=== PATIENT | female | born 1970 | race Caucasian/White ===

== ENCOUNTER → 2016-05-25 | Outpatient (CLI) | payer MEDICAID ==
[2016-05-25 16:57] LABS: ABSOLUTE EOSINOPHILS # (AUTO) 0.1 10^3/uL (0.0-0.6); ABSOLUTE LYMPHOCYTES (AUTO) 2.2 10^3/uL (0.5-4.7); ABSOLUTE MONOCYTES (AUTO) 0.6 10^3/uL (0.1-1.4); BASOPHILS % (AUTO) 0.2 % (0-2); EOSINOPHILS % (AUTO) 1.5 % (0-6); HEMATOCRIT 41.9 % (36.0-47.0); HEMOGLOBIN 13.7 g/dL (12.0-15.5); HGB HCT DIFFERENCE -0.8; LYMPHOCYTES % (AUTO) 27.8 % (13-45); MEAN CORPUSCULAR HEMOGLOBIN 27.1 pg (27.0-33.4); MEAN CORPUSCULAR HGB CONC 32.7 g/dL (32.0-36.0); MEAN CORPUSCULAR VOLUME 83 fl (80-97); MONOCYTES % (AUTO) 7.9 % (3-13); RED BLOOD COUNT 5.04 10^6/uL (3.72-5.28); RED CELL DISTRIBUTION WIDTH 15.8 % (11.5-14.0); SEGMENTED NEUTROPHILS % (AUTO) 62.6 % (42-78); WHITE BLOOD COUNT 8.1 10^3/uL (4.0-10.5)
[2016-05-25 17:18] LABS: ALANINE AMINOTRANSFERASE 23 U/L (9-52); ALBUMIN 3.6 g/dL (3.5-5.0); ALKALINE PHOSPHATASE 83 U/L (38-126); ANION GAP 11 (5-19); ASPARTATE AMINO TRANSFERASE 22 U/L (14-36); BILIRUBIN,TOTAL 0.3 mg/dL (0.2-1.3); BLOOD UREA NITROGEN 14 mg/dL (7-20); CALCIUM 9.7 mg/dL (8.4-10.2); CARBON DIOXIDE 26 mmol/L (22-30); CHLORIDE 108 mmol/L (98-107); CREATINE KINASE 94 U/L (30-135); CREATININE RESULT 0.73 mg/dL (0.52-1.25); GLUCOSE 81 mg/dL (75-110); POTASSIUM 4.9 mmol/L (3.6-5.0); SODIUM 144.7 mmol/L (137-145); TOTAL PROTEIN 7.5 g/dL (6.3-8.2)
[2016-05-25 17:28] LABS: CREATINE KINASE MB 0.27 ng/mL (<4.55)
[2016-05-25 17:33] LABS: TROPONIN I < 0.012 ng/mL
== END ==
LOC: LAB 15:43
PROVIDERS: ATTEND Nurse Practitioner Acute Care
DX: R07.89 Other chest pain (principal); R22.43 Localized swelling, mass and lump, lower limb, bilateral
CPT/HCPCS: 36415; 71020; 80053; 82550; 82553; 83880; 84484; 85025

== ENCOUNTER → 2016-06-09 | Outpatient (CLI) | payer MEDICAID ==
--- NOTE | 2016-06-10 10:51 | XCELERA REPORT ---
[address] [address] Transthoracic Echocardiogram Report Name: KRISHAN LAMBERT Age: 46 yrs Gender: Female : 1970 Patient Status: Outpatient Patient Location: Study Date: 06/09/2016 03:08 PM Height: 60 in Weight: 236 lb BSA: 2.0 m2 Procedure: A two-dimensional transthoracic echocardiogram with color flow and Doppler was performed. The study was technically difficult with many images being suboptimal in quality. The study was technically limited with all images being suboptimal in quality. Reason For Study: EDEMA R60.1 History: Edema. Ordering Physician: Sterling Khan Performed By: Jimmie Pedro Interpretation Summary The left ventricle is normal in size. There is normal left ventricular wall thickness. Left ventricular systolic function is normal. LV EF is > than 55% Doppler measurements suggest impaired left ventricular relaxation, which is associated with grade I/IV or mild diastolic dysfunction The left ventricular wall motion is normal. There is no thrombus. The left atrial size is normal. There is no evidence of mitral valve prolapse. There is no mitral valve stenosis. There is a mild amount of mitral regurgitation There is no aortic valve stenosis There is no LVOT obstruction. No aortic regurgitation is present. There is no tricuspid stenosis. There is a trace amount of tricuspid regurgitation RVSP is 28 to 33 mm of Hg , with RA mean of 5 to10.Hence no significant pulmonary hypertension. There is no pericardial effusion. MMode/2D Measurements \T\ Calculations RVDd: 2.1 cm LVIDd: 4.2 cm FS: 30.1 % Ao root diam: 2.6 cm IVSd: 1.0 cm LVIDs: 3.0 cm EDV(Teich): 80.2 ml LVPWd: 0.93 cm ESV(Teich): 33.9 ml Ao root area: 5.2 cm2 EF(Teich): 57.7 % LA dimension: 3.0 cm Doppler Measurements \T\ Calculations MV E max sami: MV P1/2t max sami: Ao V2 max: LV V1 max P.2 cm/sec 66.2 cm/sec 99.5 cm/sec 2.1 mmHg MV A max sami: MV P1/2t: 60.0 msec Ao max PG: LV V1 max: 77.5 cm/sec 4.0 mmHg 72.7 cm/sec MV E/A: 0.85 MVA(P1/2t): 3.7 cm2 MV dec slope: 323.6 cm/sec2 MV dec time: 0.21 sec PA V2 max: TR max sami: RAP systole: 76.0 cm/sec 243.0 cm/sec 10.0 mmHg PA max PG: TR max P.6 mmHg 2.3 mmHg RVSP(TR): 33.6 mmHg Left Ventricle The left ventricle is normal in size. There is normal left ventricular wall thickness. Left ventricular systolic function is normal. LV EF is > than 55%. Doppler measurements suggest impaired left ventricular relaxation, which is associated with grade I/IV or mild diastolic dysfunction. The left ventricular wall motion is normal. There is no thrombus. Right Ventricle The right ventricle is grossly normal size. Atria The right atrium is normal. The left atrial size is normal. Mitral Valve There is no evidence of mitral valve prolapse. There is no vegetation seen on the mitral valve. There is no mitral valve stenosis. There is a mild amount of mitral regurgitation. Aortic Valve There is no aortic valvular vegetation. There is no aortic valve stenosis. There is no LVOT obstruction. No aortic regurgitation is present. Tricuspid Valve There is no tricuspid stenosis. There is a trace amount of tricuspid regurgitation. RVSP is 28 to 33 mm of Hg , with RA mean of 5 to10.Hence no significant pulmonary hypertension. Pulmonic Valve There is no pulmonic valvular stenosis. There is no pulmonic valvular regurgitation. Great Vessels The aortic root is normal size. Effusions There is no pericardial effusion. : Sterling Khan > Janae Damon
== END ==
LOC: SP 14:52
PROVIDERS: ATTEND Family Medicine
DX: R60.1 Generalized edema (principal)
CPT/HCPCS: 93306

== ENCOUNTER 2017-11-22 16:16 | Emergency (ER) | payer BC ==
[2017-11-22] MEDS ORDERED: ASPIRIN 81 MG TABLET, CHEWABLE PO ONE (17:01)
--- NOTE | 2017-11-22 17:01 | ER Document Report ---
ED Medical Screen (RME) - General Chief Complaint: Palpitations Stated Complaint: CHEST PAIN,HEADACHE Time Seen by Provider: 11/22/17 16:51 Notes: RAPID MEDICAL EVALUATION DISCLOSURE I have seen this patient as part of a Rapid Medical Evaluation and, if applicable, placed any initially appropriate orders. The patient will be seen and fully evaluated, including a full history and physical exam, by a provider ( in Main ED or Fast Track) when a room becomes available. 47-year-old female here with complaints of chest pain shortness of breath lightheadedness diaphoresis nausea that started about 1 hour ago. The Holter monitor she is currently wearing alerted her care management coordinator office (Dr Voss) and they called her telling her to come immediately to the emergency department. She has been having episodes of these symptoms ongoing for the past few months and they have been trying to figure out why she is having these episodes. EXAM CTAB RRR (not tachycardic during my exam, despite sinus tachycardia on EKG) TRAVEL OUTSIDE OF THE [place] IN LAST 30 DAYS: No - Related Data Allergies/Adverse Reactions: No Known Allergies Allergy (Verified 11/22/17 16:50) Past Medical History - Social History Chew tobacco use (# tins/day): No Frequency of alcohol use: None Drug Abuse: None - Past Medical History Cardiac Medical History: Reports: Hx Coronary Artery Disease Denies: Hx Heart Attack, Hx Hypertension Pulmonary Medical History: Denies: Hx Asthma, Hx Bronchitis, Hx COPD, Hx Pneumonia Neurological Medical History: Reports: Hx Migraine. Denies: Hx Cerebrovascular Accident, Hx Seizures Renal/ Medical History: Denies: Hx Peritoneal Dialysis Musculoskeltal Medical History: Denies Hx Arthritis, Reports Hx Fibromyalgia - Immunizations Hx Diphtheria, Pertussis, Tetanus Vaccination: Yes Physical Exam - Vital signs Vitals: Temp Pulse Resp BP Pulse Ox 98.6 F 90 18 119/80 98 11/22/17 16:33 11/22/17 16:33 11/22/17 16:33 11/22/17 16:33 11/22/17 16:33 Course - Vital Signs Vital signs: Temp Pulse Resp BP Pulse Ox 98.6 F 90 18 119/80 98 11/22/17 16:33 11/22/17 16:33 11/22/17 16:33 11/22/17 16:33 11/22/17 16:33 Doctor's Discharge - Discharge Referrals: ALONZO RIGGINS DO [Primary Care Provider] - Follow up as needed
[2017-11-22 17:27] LABS: ABSOLUTE EOSINOPHILS # (AUTO) 0.1 10^3/uL (0.0-0.6); ABSOLUTE LYMPHOCYTES (AUTO) 2.2 10^3/uL (0.5-4.7); ABSOLUTE MONOCYTES (AUTO) 0.6 10^3/uL (0.1-1.4); BASOPHILS % (AUTO) 0.2 % (0-2); HEMOGLOBIN 14.3 g/dL (12.0-15.5); LYMPHOCYTES % (AUTO) 31.7 % (13-45); MEAN CORPUSCULAR HGB CONC 33.3 g/dL (32.0-36.0); MEAN CORPUSCULAR VOLUME 96 fl (80-97); MONOCYTES % (AUTO) 8.7 % (3-13); PLATELET COUNT 264 10^3/uL (150-450); RED BLOOD COUNT 4.49 10^6/uL (3.72-5.28); RED CELL DISTRIBUTION WIDTH 16.6 % (11.5-14.0); SEGMENTED NEUTROPHILS % (AUTO) 58.4 % (42-78); TOTAL CELLS COUNTED % (AUTO) 100 %; WHITE BLOOD COUNT 6.8 10^3/uL (4.0-10.5)
[2017-11-22 17:44] LABS: ALANINE AMINOTRANSFERASE 25 U/L (9-52); ALBUMIN 4.2 g/dL (3.5-5.0); ALKALINE PHOSPHATASE 65 U/L (38-126); ANION GAP 13 (5-19); ASPARTATE AMINO TRANSFERASE 21 U/L (14-36); BILIRUBIN,DIRECT 0.3 mg/dL (0.0-0.4); BILIRUBIN,TOTAL 0.3 mg/dL (0.2-1.3); BLOOD UREA NITROGEN 10 mg/dL (7-20); CALCIUM 9.5 mg/dL (8.4-10.2); CARBON DIOXIDE 24 mmol/L (22-30); CHLORIDE 111 mmol/L (98-107); GLUCOSE 83 mg/dL (75-110); PHOSPHORUS 3.9 mg/dL (2.5-4.5); POTASSIUM 4.6 mmol/L (3.6-5.0); SODIUM 147.7 mmol/L (137-145); TOTAL PROTEIN 7.4 g/dL (6.3-8.2)
--- NOTE | 2017-11-22 17:46 | RADIOLOGY REPORT (SQ) ---
EXAM DESCRIPTION: CHEST 2 VIEWS COMPLETED DATE/TIME: 11/22/2017 5:39 pm REASON FOR STUDY: CP SOB COMPARISON: 05/25/2016 EXAM PARAMETERS: NUMBER OF VIEWS: two views TECHNIQUE: Digital Frontal and Lateral radiographic views of the chest acquired. RADIATION DOSE: NA LIMITATIONS: none FINDINGS: LUNGS AND PLEURA: No opacities, masses or pneumothorax. No pleural effusion. MEDIASTINUM AND HILAR STRUCTURES: No masses or contour abnormalities. HEART AND VASCULAR STRUCTURES: Heart normal size. No evidence for failure. BONES: No acute findings. HARDWARE: None in the chest. OTHER: No other significant finding. IMPRESSION: NO ACUTE RADIOGRAPHIC FINDING IN THE CHEST. TECHNICAL DOCUMENTATION: JOB ID: [id number] [employer]- All Rights Reserved Reading location - IP/workstation name: [email or web address]
[2017-11-22] MEDS ORDERED: METOPROLOL TARTRATE 25 MG TABLET PO ONE (19:13)
--- NOTE | 2017-11-22 19:18 | ER Document Report ---
ED General - General Chief Complaint: Palpitations Stated Complaint: CHEST PAIN,HEADACHE Time Seen by Provider: 11/22/17 16:51 Notes: Patient is a 47 year old female with a past medical history of frequent palpitations who presents after having a 15-20 minute episode in which she felt her heart racing very fast when she became diaphoretic and lightheaded. She states that the Holter monitor company contacted her and instructed her to go to the emergency department as she was having severe tachycardia. The patient notes that she has been having similar episodes for over 1 year but that this is the first time she has ever had an event while on a monitor. She states that her symptoms did spontaneously resolve and she now denies any acute complaints. She denies any chest pain or shortness of breath during or after the event. Tachycardia did spontaneously resolve. She does admit to not taking her metoprolol either this morning or last night. She has not yet spoken to her key person regarding today's concerns. No known history of coronary artery disease. TRAVEL OUTSIDE OF THE [place] IN LAST 30 DAYS: No - Related Data Allergies/Adverse Reactions: No Known Allergies Allergy (Verified 11/22/17 16:50) Past Medical History - General Information source: Patient - Social History Smoking Status: Current Every Day Smoker Chew tobacco use (# tins/day): No Frequency of alcohol use: None Drug Abuse: None Lives with: Family Family History: Reviewed & Not Pertinent Patient has suicidal ideation: No Patient has homicidal ideation: No - Past Medical History Cardiac Medical History: Reports: Hx Coronary Artery Disease Denies: Hx Heart Attack, Hx Hypertension Pulmonary Medical History: Denies: Hx Asthma, Hx Bronchitis, Hx COPD, Hx Pneumonia Neurological Medical History: Reports: Hx Migraine. Denies: Hx Cerebrovascular Accident, Hx Seizures Renal/ Medical History: Reports: Hx Kidney Stones. Denies: Hx Peritoneal Dialysis Musculoskeltal Medical History: Reports Hx Arthritis, Reports Hx Fibromyalgia - Immunizations Hx Diphtheria, Pertussis, Tetanus Vaccination: Yes Review of Systems - Review of Systems Notes: Constitutional: Negative for fever. Positive for lightheadedness HENT: Negative for sore throat. Eyes: Negative for visual changes. Cardiovascular: Positive for palpitations Respiratory: Negative for shortness of breath. Gastrointestinal: Negative for abdominal pain, vomiting or diarrhea. Genitourinary: Negative for dysuria. Musculoskeletal: Negative for back pain. Skin: Negative for rash. Neurological: Negative for headaches, weakness or numbness. 10 point ROS negative except as marked above and in HPI. Physical Exam - Vital signs Vitals: Temp Pulse Resp BP Pulse Ox 98.6 F 90 18 119/80 98 11/22/17 16:33 11/22/17 16:33 11/22/17 16:33 11/22/17 16:33 11/22/17 16:33 Interpretation: Normal Notes: PHYSICAL EXAMINATION: GENERAL: Well-appearing, well-nourished and in no acute distress. HEAD: Atraumatic, normocephalic. EYES: Pupils equal round and reactive to light, extraocular movements intact, sclera anicteric, conjunctiva are normal. ENT: nares patent, oropharynx clear without exudates. Moist mucous membranes. NECK: Normal range of motion, supple without lymphadenopathy LUNGS: Breath sounds clear to auscultation bilaterally and equal. No wheezes rales or rhonchi. HEART: Regular rate and rhythm without murmurs ABDOMEN: Soft, nontender, normoactive bowel sounds. No guarding, no rebound. No masses appreciated. EXTREMITIES: Normal range of motion, no pitting or edema. No cyanosis. NEUROLOGICAL: No focal neurological deficits. Moves all extremities spontaneously and on command. PSYCH: Normal mood, normal affect. SKIN: Warm, Dry, normal turgor, no rashes or lesions noted. Course - Re-evaluation Re-evalutation: 11/22/17 19:16 Patient presents after having lightheadedness and palpitations which were recorded by her Holter monitor noted to be sinus tachycardia up to 182 bpm. The patient did not take her metoprolol this morning or last evening. She denies any symptoms at the time of my assessment. EKG here unremarkable. Labs unremarkable. Her key person Dr. Voss was reached out to but was not available for contact as he is not currently windows migration technician and is currently out of town. I have therefore contacted Dr. Damon who has encouraged me to tell patient she needs to continue taking her metoprolol and follow-up in the clinic. He has reviewed her strips and is agreeable to this plan. Clinical history and exam are not consistent with an acute RI, acute pulmonary embolus, aortic dissection or spontaneous pneumothorax. Patient denies any ongoing symptoms at the time my assessment is very well in appearance. She has been given a dose of metoprolol here in the emergency department as she has not taken it in over 24 hours. At this time will discharge with return precautions and follow-up recommendations. Verbal discharge instructions given a the bedside and opportunity for questions given. Medication warnings reviewed. Patient is in agreement with this plan and has verbalized understanding of return precautions and the need for primary care follow-up in the next 24-72 hours. - Vital Signs Vital signs: Temp Pulse Resp BP Pulse Ox 98.7 F 83 16 122/78 98 11/22/17 19:42 11/22/17 19:42 11/22/17 19:42 11/22/17 19:42 11/22/17 19:42 - Laboratory Result Diagrams: 11/22/17 17:05 11/22/17 17:05 Laboratory results interpreted by me: 11/22/17 11/22/17 17:05 17:05 RDW 16.6 H Sodium 147.7 H Chloride 111 H - Diagnostic Test Radiology reviewed: Image reviewed, Reports reviewed Radiology results interpreted by me: 11/22/17 19:17 Chest x-ray: No acute infiltrate or pneumothorax - EKG Interpretation by Me Additional EKG results interpreted by me: 11/22/17 19:18 Sinus tachycardia. Rate 110. No ST elevations or depressions. QTC is 433. Discharge - Discharge Clinical Impression: Sinus tachycardia, Palpitations, Near syncope Condition: Good Disposition: HOME, SELF-CARE Additional Instructions: Your event monitor recorded a period of sinus tachycardia that did spontaneously resolve. Please be sure to take her metoprolol as directed as missing this medication may have been what prompted you to have today's event. I have discussed with Dr. Damon who is currently covering for Dr. Voss and he has not recommended any medication changes at this time point but has again emphasized that you need to continue taking the metoprolol as prescribed. Please contact Dr. Voss's office to schedule a close follow-up. Return if you have recurrent palpitations, vomiting, chest pain, pass out, develop shortness of breath, or have any other symptoms that are worrisome to you. Referrals: ALONZO RIGGINS DO [Primary Care Provider] - Follow up as needed LOGAN VOSS MD [ACTIVE STAFF] - Follow up tomorrow
[2017-11-22 19:43] VITALS: BP 122/78
--- NOTE | 2017-11-22 20:25 | EKG REPORT ---
SEVERITY:- BORDERLINE ECG - SINUS TACHYCARDIA BORDERLINE T ABNORMALITIES, ANTERIOR LEADS : Confirmed by: Janae Damon MD 22-Nov-2017 20:24:21
== END 2017-11-22 20:14 | disposition home or self-care (01) ==
LOC: ER 16:16
DX: R00.0 Tachycardia, unspecified (principal); R00.2 Palpitations; R42 Dizziness and giddiness; R61 Generalized hyperhidrosis; F17.200 Nicotine dependence, unspecified, uncomplicated; I25.10 Atherosclerotic heart disease of native coronary artery without angina pectoris
CPT/HCPCS: 36415; 71046; 80053; 83735; 84100; 84443; 84484; 85025; 93005; 93010; 99285

== ENCOUNTER 2018-01-07 11:31 | Emergency (ER) | payer BC ==
--- NOTE | 2018-01-07 12:01 | ER Document Report ---
ED General - General Chief Complaint: Chest Pain Stated Complaint: SYNCOPAL EPISODE Time Seen by Provider: 01/07/18 11:36 TRAVEL OUTSIDE OF THE [place] IN LAST 30 DAYS: No - HPI Notes: Patient is a 47-year-old female with a history of hypertension, migraines, recurrent palpitations, chronic pain who presents to the ED complaining of a syncopal episode. Pt states that she started to get light headed prior to her syncopal episode. Patient states that she would not have called the ambulance, but bystanders called when she had her episode that was brief. Patient states that she regained consciousness quickly and feels back to normal. Patient states that she has had episodes of syncope over the last year that she states has been evaluated by a neurologist. Patient states that she also has some chest wall tenderness mid sternally that has been present intermittently for over a year as well as intermittent abdominal pain that has been there for over a year. Patient states that her pains do not radiate and are not worsened by anything that she is aware of. She has been eating and drinking without any difficulties. She is urinating normally and having normal bowel movements. Her abdominal pain is generalized. She reports surgical history of having to have scar tissue removed, but denies any other surgical history to her abdomen. Denies any drug allergies. Denies any headache, fever, head injury, neck pain , changes in vision/speech/mentation/hearing, URI, sore throat, palpitations, syncope, cough, shortness of breath, wheeze, dyspnea, nausea/vomiting/diarrhea, urinary retention, dysuria, hematuria, loss of control of bowel or bladder, numbness/tingling, saddle anesthesia, muscle paralysis/weakness, or rash. Denies any prolonged immobilization, distance travel, recent surgery/trauma, personal cancer history, hormone use, smoking, or previous DVT/PE. - Related Data Allergies/Adverse Reactions: No Known Allergies Allergy (Verified 11/22/17 16:50) Past Medical History - Social History Smoking Status: Unknown if Ever Smoked Family History: Reviewed & Not Pertinent - Past Medical History Cardiac Medical History: Reports: Hx Coronary Artery Disease Denies: Hx Heart Attack, Hx Hypertension Pulmonary Medical History: Denies: Hx Asthma, Hx Bronchitis, Hx COPD, Hx Pneumonia Neurological Medical History: Reports: Hx Migraine. Denies: Hx Cerebrovascular Accident, Hx Seizures Renal/ Medical History: Reports: Hx Kidney Stones. Denies: Hx Peritoneal Dialysis Musculoskeletal Medical History: Reports Hx Arthritis, Reports Hx Fibromyalgia - Immunizations Hx Diphtheria, Pertussis, Tetanus Vaccination: Yes Review of Systems - Review of Systems -: Yes All other systems reviewed and negative Physical Exam - Vital signs Vitals: Pulse Ox 97 01/07/18 11:49 - Notes Notes: PHYSICAL EXAMINATION: accompanied by female nurse GENERAL: Well-appearing, well-nourished and in no acute distress. A&Ox4. Answers questions appropriately. HEAD: Atraumatic, normocephalic. Non-tender. No norris sign EYES: Pupils equal round and reactive to light, extraocular movements intact, sclera anicteric, conjunctiva are normal. No raccoon eyes/entrapment. No nystagmus. ENT: EAC clear b/l. TM's intact b/l without erythema, fluid, or perforation. Nares patent and without discharge. oropharynx clear without exudates. No tonsilar hypertrophy or erythema. Moist mucous membranes. No sinus tenderness. No hemotympanum/CSF discharge. NECK: Normal range of motion, supple without lymphadenopathy. No rigidity. No midline tenderness. Spurling negative. NEXUS negative. Chest: No flail chest. equal rise/fall. + tenderness, correlates with pain described. LUNGS: Breath sounds clear to auscultation bilaterally and equal. No wheezes rales or rhonchi. HEART: Regular rate and rhythm without murmurs, rubs, gallops. ABDOMEN: Soft, nondistended abdomen. No guarding, no rebound. No masses appreciated. Normal bowel sounds present. No CVA tenderness bilaterally. + generalized mild tenderness. No specific tenderness at McBurney. Valles neg. Musculoskeletal: Ext b/l: FROM to passive/active. Strength 5+/5. No deficits noted. No bony tenderness of extremities. Back: FROM to passive/active. Strength 5+/5. No vertebral point tenderness, stepoffs, or deformities. Extremities: No cyanosis, clubbing, or edema b/l. Peripheral pulses 2+. Capillary refill less than 2 seconds. NEUROLOGICAL: NIH 0. GCS 15. Cranial nerves grossly intact. Normal speech, normal gait. Normal sensory, motor exams. Reflexes 2+ b/l. NEGRO's negative. Pronator drift negative. Heel/currie, finger/nose wnl. PSYCH: flat SKIN: Warm, Dry, normal turgor, no rashes or lesions noted. Course - Re-evaluation Re-evalutation: 01/07/18 14:20 Patient is an afebrile, well-hydrated 47-year-old female who presents to the ED with episode of syncope (chronic intermittent), chronic chest wall pain, chronic generalized mild abd pain. Vitals are acceptable without any significant tachycardia, tachypnea, or hypoxia. PE is otherwise unremarkable aside from the reproducible chest wall tenderness, currently asymptomatic. Abd is now soft and completely non-tender. Patient is nontoxic-appearing and is tolerating p.o. without any difficulties. Pt is currently asymptomatic. Her pains and symptomatology have been ongoing for over a year with the latest symptoms present x5 days. CBC, CMP, EKG/cardiac enzymes, chest x-ray, CT head are all unremarkable for any acute pathology. Patient has a heart score of 2, Wells score of 0, and is PERC negative. Patient does not have any chest pain, dyspnea, or shortness of breath at this time. Patient's presentation and symptomatology creates low suspicion for ACS, PE, pneumothorax, pericarditis, dissection, respiratory compromise, severe dehydration, sepsis, meningitis, acute intracranial pathology, or other systemic emergent condition at this time. Patient is aware that her condition can change from initial presentation and she needs to monitor symptoms closely and seek medical attention for any acute changes. Pt is feeling better and would like to go home. Recommend conservative measures for symptoms. Recheck with your PCM/material expeditor in 2-3 days. Return to the ED with any worsening/concerning symptoms otherwise as reviewed in discharge. Patient is in agreement. - Vital Signs Vital signs: Temp Pulse Resp BP Pulse Ox 97 01/07/18 11:49 - Laboratory Result Diagrams: 01/07/18 12:30 01/07/18 13:15 Laboratory results interpreted by me: 01/07/18 01/07/18 12:30 13:15 RDW 15.7 H Potassium 3.4 L Carbon Dioxide 19 L Discharge - Discharge Clinical Impression: Chest wall pain Syncopal episodes Qualifiers: Syncope type: unspecified Qualified Code(s): R55 - Syncope and collapse Abdominal pain Qualifiers: Abdominal location: generalized Qualified Code(s): R10.84 - Generalized abdominal pain Condition: Stable Disposition: HOME, SELF-CARE Instructions: Chest Wall Pain ([facility]), Abdominal Pain ([facility]), Syncopal Episode ( [facility]) Additional Instructions: Maintain adequate fluid and food intake Take home medications as directed Low sodium/fat diet Exercise regularly Weight control Monitor blood pressure daily and keep a log Monitor symptoms for any acute changes Recheck with your PCM/material expeditor/neurologist in 3-5 days Consider a follow-up with Gastroenterology Return to the ED with any worsening symptoms and/or development of fever, headache, chest pain, palpitations, syncope, shortness of breath, trouble breathing, abdominal pain, n/v/d, blood in stool/urine, loss of control of bowel /bladder, urinary retention, muscle weakness/paralysis, numbness/tingling, or other worsening symptoms that are concerning to you. Forms: Elevated Blood Pressure Referrals: ALONZO RIGGINS DO [Primary Care Provider] - 01/10/18
[2018-01-07 12:30] LABS: APPEARANCE,URINE CLEAR; BILIRUBIN,URINE NEGATIVE (NEGATIVE); COLOR,URINE YELLOW; GLUCOSE, URINE NEGATIVE (NEGATIVE); KETONES,URINE NEGATIVE (NEGATIVE); LEUKOCYTE ESTERASE,URINE NEGATIVE (NEGATIVE); NITRITE,URINE NEGATIVE (NEGATIVE); PROTEIN,URINE NEGATIVE (NEGATIVE); URINE SPECIFIC GRAVITY 1.013; UROBILINOGEN,URINE NEGATIVE mg/dL (<2.0)
--- NOTE | 2018-01-07 12:34 | RADIOLOGY REPORT (SQ) ---
EXAM DESCRIPTION: CT HEAD WITHOUT COMPLETED DATE/TIME: 01/07/2018 12:24 pm REASON FOR STUDY: chest pain COMPARISON: None. TECHNIQUE: Axial images acquired through the brain without intravenous contrast. Images reviewed wi th bone, brain and subdural windows. Additional sagittal and coronal reconstructions were generated. Images stored on PACS. All CT scanners at this facility use dose modulation, iterative reconstruction, and/or weight based d osing when appropriate to reduce radiation dose to as low as reasonably achievable (ALARA). [facility]: Dose Right [facility]: CareDose [facility]: Dose Right [facility]: Teradose 4D [facility]: ProTenders RADIATION DOSE: CT Rad equipment meets quality standard of care and radiation dose reduction techniq ues were employed. CTDIvol: 53.2 mGy. DLP: 937 mGy-cm. mGy. LIMITATIONS: None. FINDINGS: VENTRICLES: Normal size and contour. CEREBRUM: No masses. No hemorrhage. No midline shift. No evidence for acute infarction. Normal gra y/white matter differentiation. No areas of low density in the white matter. CEREBELLUM: No masses. No hemorrhage. No alteration of density. No evidence for acute infarction. EXTRAAXIAL SPACES: No fluid collections. No masses. ORBITS AND GLOBE: No intra- or extraconal masses. Normal contour of globe without masses. CALVARIUM: No fracture. PARANASAL SINUSES: No fluid or mucosal thickening. SOFT TISSUES: No mass or hematoma. OTHER: No other significant finding. IMPRESSION: NORMAL BRAIN CT WITHOUT CONTRAST. EVIDENCE OF ACUTE STROKE: NO. COMMENT: Quality ID # [id number]: Final reports with documentation of one or more dose reduction techniques (e.g., Automated exposure control, adjustment of the mA and/or kV according to patient size, use of iterative reconstruction technique) TECHNICAL DOCUMENTATION: JOB ID: [id number] [employer]- All Rights Reserved Reading location - IP/workstation name: [email or web address]
--- NOTE | 2018-01-07 12:44 | RADIOLOGY REPORT (SQ) ---
EXAM DESCRIPTION: CHEST SINGLE VIEW COMPLETED DATE/TIME: 01/07/2018 12:20 pm REASON FOR STUDY: chest pain COMPARISON: None. EXAM PARAMETERS: NUMBER OF VIEWS: One view. TECHNIQUE: Single frontal radiographic view of the chest acquired. RADIATION DOSE: NA LIMITATIONS: None. FINDINGS: LUNGS AND PLEURA: No opacities, masses or pneumothorax. No pleural effusion. MEDIASTINUM AND HILAR STRUCTURES: No masses. Contour normal. HEART AND VASCULAR STRUCTURES: Heart normal in size. Normal vasculature. BONES: No acute findings. HARDWARE: None in the chest. OTHER: No other significant finding. IMPRESSION: NO ACUTE RADIOGRAPHIC FINDING IN THE CHEST. TECHNICAL DOCUMENTATION: JOB ID: [id number] [employer]- All Rights Reserved Reading location - IP/workstation name: [email or web address]
[2018-01-07 12:48] LABS: URINE AMPHETAMINES SCREEN NEGATIVE; URINE BARBITURATES SCREEN UNCONFIRMED POSITIVE; URINE BENZODIAZEPINES SCREEN NEGATIVE; URINE COCAINE SCREEN NEGATIVE; URINE MARIJUANA (THC) SCREEN NEGATIVE; URINE METHADONE SCREEN NEGATIVE; URINE PHENCYCLIDINE SCREEN NEGATIVE
[2018-01-07 12:48] LABS: ABSOLUTE EOSINOPHILS # (AUTO) 0.1 10^3/uL (0.0-0.6); ABSOLUTE MONOCYTES (AUTO) 0.4 10^3/uL (0.1-1.4); ABSOLUTE NEUT (AUTO) 3.5 10^3/uL (1.7-8.2); BASOPHILS % (AUTO) 0.5 % (0-2); EOSINOPHILS % (AUTO) 1.1 % (0-6); HEMATOCRIT 44.6 % (36.0-47.0); HEMOGLOBIN 15.1 g/dL (12.0-15.5); LYMPHOCYTES % (AUTO) 33.7 % (13-45); MEAN CORPUSCULAR HEMOGLOBIN 32.5 pg (27.0-33.4); MEAN CORPUSCULAR HGB CONC 33.9 g/dL (32.0-36.0); MEAN CORPUSCULAR VOLUME 96 fl (80-97); MONOCYTES % (AUTO) 6.8 % (3-13); PLATELET COUNT 225 10^3/uL (150-450); RED BLOOD COUNT 4.65 10^6/uL (3.72-5.28); RED CELL DISTRIBUTION WIDTH 15.7 % (11.5-14.0); SEGMENTED NEUTROPHILS % (AUTO) 57.9 % (42-78); TOTAL CELLS COUNTED % (AUTO) 100 %
[2018-01-07 13:53] LABS: ALANINE AMINOTRANSFERASE 16 U/L (9-52); ALBUMIN 3.7 g/dL (3.5-5.0); ALKALINE PHOSPHATASE 65 U/L (38-126); ANION GAP 14 (5-19); ASPARTATE AMINO TRANSFERASE 25 U/L (14-36); BILIRUBIN,DIRECT 0.4 mg/dL (0.0-0.4); BILIRUBIN,TOTAL 0.4 mg/dL (0.2-1.3); BLOOD UREA NITROGEN 14 mg/dL (7-20); CALCIUM 9.4 mg/dL (8.4-10.2); CARBON DIOXIDE 19 mmol/L (22-30); CHLORIDE 107 mmol/L (98-107); GLUCOSE 104 mg/dL (75-110); POTASSIUM 3.4 mmol/L (3.6-5.0); SODIUM 140.1 mmol/L (137-145); TOTAL PROTEIN 7.6 g/dL (6.3-8.2)
[2018-01-07 14:31] VITALS: BP 102/73
--- NOTE | 2018-01-07 20:41 | EKG REPORT ---
SEVERITY:- ABNORMAL ECG - SINUS RHYTHM NONSPECIFIC T ABNORMALITIES, ANT-LAT LEADS : Confirmed by: Fede Voss 07-Jan-2018 17:41:23
== END 2018-01-07 14:41 | disposition home or self-care (01) ==
LOC: ER 11:31
DX: R55 Syncope and collapse (principal); R07.89 Other chest pain; R10.84 Generalized abdominal pain; G89.29 Other chronic pain; I25.10 Atherosclerotic heart disease of native coronary artery without angina pectoris
CPT/HCPCS: 36415; 70450; 71045; 80053; 80307; 81001; 84484; 84703; 85025; 87086; 87088; 93005; 93010; 99285

== ENCOUNTER 2018-02-16 09:23 | Day surgery (SDC) | payer BC ==
[2018-02-16] MEDS ORDERED: PROPOFOL INJ 200 MG/20 ML VIAL IV ONE (11:45)
[2018-02-16] MEDS ORDERED: PROMETHAZINE HCL INJ 25 MG/1 ML VIAL IV PRN (12:50)
[2018-02-16] MEDS ORDERED: ONDANSETRON HCL INJ/PF 4 MG/2 ML SDV IV PRN (12:50)
[2018-02-16] MEDS ORDERED: DIPHENHYDRAMINE HCL 50 MG/ML VIAL IV PRN (12:50)
--- NOTE | 2018-02-16 13:11 | Operative Report ---
Operative Report DATE OF SURGERY: 02/16/18 Operative Report: The risks, benefits and alternatives of the procedure including the risks of bleeding, perforation requiring surgery are explained to the patient in detail and informed consent is obtained. The patient is placed in the left, lateral decubital position. Patient is taken back to the operating room. Timeout was called. Propofol medication is administered. A rectal examination is done which did not reveal any masses, tears or fissures. An Olympus videoscope was inserted into the patient's rectum. The scope was then carefully advanced all the way to the cecum. The cecum was identified by the usual anatomical landmarks including the ileocecal valve as well as the appendiceal office. Photodocumentation is obtained. The scope was then sequentially pulled back via the various segments of the colon including the ascending colon, hepatic flexure, transverse colon, splenic flexure, descending colon and finally into the rectosigmoid portions of the colon. Retroflexion maneuver is performed. The risks benefits and alternatives of the procedure explained to the patient in detail and informed consent is obtained.A GIF Olympus video scope was inserted into the patient's mouth and hypopharynx, the esophagus is identified intubated and insufflated ,the scope was then advanced through the esophagus stomach and duodenum, retroflexion maneuver is done the esophagus stomach and first and second portions of the duodenum examined PREOPERATIVE DIAGNOSIS: Dysphagia. Change of bowel habits. Colorectal cancer screening POSTOPERATIVE DIAGNOSIS: Small polyp noted in the cecum removed via snare polypectomy. Right-sided colon inflammation status post biopsy rule out lymphocytic, microscopic, collagenous colitis. Internal hemorrhoids. Gastritis status post biopsy rule out Helicobacter pylori OPERATION: Colonoscopy with snare polypectomy. Colonoscopy with biopsy. EGD with biopsy SURGEON: LUCIEN PETERSON ANESTHESIA: LMAC TISSUE REMOVED OR ALTERED: As noted above. COMPLICATIONS: None. ESTIMATED BLOOD LOSS: None. INTRAOPERATIVE FINDINGS: As noted above. PROCEDURE: Patient tolerated the procedure well. No immediate postprocedure complications are noted. Patient discharged in good condition. Discharge date 02/16/2018. Discharge diet: Regular. Discharge activity: Regular. 2-3-week follow-up to discuss findings. Patient is instructed call the office or proceed to the emergency room should there be any further problems or questions. Wait on the pathology. 3-5-year surveillance colonoscopy.
[2018-02-16 14:21] VITALS: BP 120/70
== END 2018-02-16 14:22 | disposition home or self-care (01) ==
LOC: OROUT 09:23
PROVIDERS: ATTEND Internal Medicine Gastroenterology
DX: D12.0 Benign neoplasm of cecum (principal); K29.50 Unspecified chronic gastritis without bleeding; K52.9 Noninfective gastroenteritis and colitis, unspecified; K64.8 Other hemorrhoids; I10 Essential (primary) hypertension; M19.90 Unspecified osteoarthritis, unspecified site; E03.9 Hypothyroidism, unspecified; G43.109 Migraine with aura, not intractable, without status migrainosus; M79.7 Fibromyalgia; M17.0 Bilateral primary osteoarthritis of knee; E78.2 Mixed hyperlipidemia; E55.9 Vitamin D deficiency, unspecified; R00.0 Tachycardia, unspecified; R63.4 Abnormal weight loss; Z79.82 Long term (current) use of aspirin; Z79.899 Other long term (current) drug therapy; Z80.0 Family history of malignant neoplasm of digestive organs; Z68.31 Body mass index [BMI] 31.0-31.9, adult
CPT/HCPCS: 43239; 45380; 45385; 36415; 84132; 81025; 88342 ×2; 88305 ×2; J2704; 813

== ENCOUNTER 2018-04-14 06:58 | Day surgery (SDC) | payer BC ==
[2018-04-04 10:30] LABS: ALANINE AMINOTRANSFERASE 13 U/L (9-52); ALBUMIN 3.8 g/dL (3.5-5.0); ALKALINE PHOSPHATASE 60 U/L (38-126); ANION GAP 11 (5-19); ASPARTATE AMINO TRANSFERASE 19 U/L (14-36); BILIRUBIN,DIRECT 0.3 mg/dL (0.0-0.4); BILIRUBIN,TOTAL 0.3 mg/dL (0.2-1.3); BLOOD UREA NITROGEN 11 mg/dL (7-20); CALCIUM 9.2 mg/dL (8.4-10.2); CARBON DIOXIDE 24 mmol/L (22-30); CHLORIDE 109 mmol/L (98-107); GLUCOSE 113 mg/dL (75-110); POTASSIUM 3.9 mmol/L (3.6-5.0); SODIUM 144.4 mmol/L (137-145); TOTAL PROTEIN 6.6 g/dL (6.3-8.2)
--- NOTE | 2018-04-04 22:00 | EKG REPORT ---
SEVERITY:- ABNORMAL ECG - SINUS RHYTHM SHORT NC INTERVAL, ACCELERATED AV CONDUCTION NONSPECIFIC T ABNORMALITIES, ANT-LAT LEADS : Confirmed by: Janae Damon MD 04-Apr-2018 22:00:24
[~2018-04-14 06:58] MED LIST: CEFAZOLIN 2 GM/D5W RTU 2 GM/50 ML RTUPB IV PRN; LACTATED RINGERS 1000 ML IV PRN; LIDOCAINE 0.5% INJ-PF (5 MG/ML) 50 ML SDV SUBCUT PRN
[2018-04-14] MEDS ORDERED: CEFAZOLIN 2 GM/D5W RTU 2 GM/50 ML RTUPB IV ONE (08:06)
[2018-04-14] MEDS ORDERED: HYDROMORPHONE HCL INJ/PF 2 MG/ML AMPULE ONE (09:00)
[2018-04-14] MEDS ORDERED: ACETAMINOPHEN 1,000 MG/100 ML RTUPB IV ONE (09:01)
[2018-04-14] MEDS ORDERED: MIDAZOLAM 2 MG/2 ML INJ ONE (09:01)
[2018-04-14] MEDS ORDERED: PROPOFOL INJ 200 MG/20 ML VIAL IV ONE (09:01)
[2018-04-14] MEDS ORDERED: FENTANYL CITRATE INJ/PF 100 MCG/2 ML AMPUL ONE (09:01)
[2018-04-14] MEDS ORDERED: ONDANSETRON HCL INJ/PF 4 MG/2 ML SDV ONE (09:01)
[2018-04-14] MEDS ORDERED: DEXAMETHASONE SOD PHOSPHATE INJ 4 MG/1 ML VIAL ONE (09:01)
[2018-04-14] MEDS ORDERED: BUPIVACAINE HCL 0.25 % INJ/PF (2.5 MG/1 ML) 30 ML VIAL ONE (09:08)
[2018-04-14] MEDS ORDERED: DIPHENHYDRAMINE HCL 50 MG/ML VIAL IV PRN (09:51)
[2018-04-14] MEDS ORDERED: FENTANYL CITRATE INJ/PF 100 MCG/2 ML AMPUL IV PRN ×3 (09:51)
[2018-04-14] MEDS ORDERED: MORPHINE SULFATE 10 MG/ML INJ IV PRN (09:51)
[2018-04-14] MEDS ORDERED: PROMETHAZINE HCL INJ 25 MG/1 ML VIAL IV PRN (09:51)
[2018-04-14] MEDS ORDERED: MEPERIDINE HCL/PF INJ 25 MG/1 ML DISP.SYRIN IV PRN (09:51)
[2018-04-14] MEDS ORDERED: SUGAMMADEX SODIUM 200 MG/2 ML SDV IV ONE (10:25)
--- NOTE | 2018-04-14 10:35 | Discharge Summary ---
Discharge Summary (SDC) - Discharge Final Diagnosis: Symptomatic cholelithiasis Date of Surgery: 04/14/18 Discharge Date: 04/14/18 Condition: Stable Treatment or Instructions: Discharge home. Diet as tolerated. Activity: No lifting greater than 10 pounds x 2 weeks. Okay to shower in 48 hours. No tub baths or swimming pools times 2 weeks. Medanales 10/325 mg p.o. every 6 hours as needed for pain. Follow- up with me in 7-10 days. Referrals: ALONZO RIGGINS DO [Primary Care Provider] - Discharge Diet: As Tolerated Respiratory Treatments at Home: Deep Breathing/Coughing, Incentive Spirometer Discharge Activity: No Lifting Over 10 Pounds Home Care Assistance: None Needed Report the Following to Your Physician Immediately: Shortness of Breath, Nausea , Vomiting, Increase in Pain, Yellow Skin, Fever over 101 Degrees, Unusual Bleeding, Redness, Swelling, Warmth
[2018-04-14] MEDS ORDERED: NALOXONE HCL INJ/PF 0.4 MG/1 ML SDV ONE (10:41)
--- NOTE | 2018-04-14 10:48 | Operative Report ---
Nonrecallable Operative Report DATE OF SURGERY: 04/14/18 PREOPERATIVE DIAGNOSIS: Symptomatic cholelithiasis POSTOPERATIVE DIAGNOSIS: Same as above OPERATION: Laparoscopic cholecystectomy SURGEON: GLADYS CROOKS ANESTHESIA: GA TISSUE REMOVED OR ALTERED: Gallbladder COMPLICATIONS: None apparent ESTIMATED BLOOD LOSS: Minimal PROCEDURE: Drains/implants: None. Procedure in detail: After informed consent was obtained, the patient was brought into the operating room and laid in the supine position. The area of the abdomen was prepped and draped in normal sterile fashion. A 15 blade scalpel was used to create a supraumbilical incision. This was deepened through the use of sharp and blunt dissection. The cicatrix was identified, grasped with a Myranda clamp, and retracted upwards. The linea alba fascia was incised sharply. The abdomen was entered sharply. The balloon trocar was inserted, and pneumoperitoneum was achieved. A subxiphoid 5 mm port was placed under direct laparoscopic visualization. 2 more 5 mm ports were placed in the right upper quadrant in similar fashion. Atraumatic graspers were placed through the 5 mm ports. The gallbladder was retracted cephalad and laterally. Dissection was begun in the triangle of Calot. The cystic duct and cystic artery were fully visualized and skeletonized , seeing the liver through the triangle. Once the critical view of safety was obtained, the cystic duct and cystic artery were clipped and cut with laparoscopic instruments. The gallbladder was then removed from the liver using Bovie electrocautery. The gallbladder was grasped with a large clamp and pulled out through the umbilicus. The camera was reinserted, and the hilum was inspected. The hilum was free of any leakage of blood or bile. Once this was confirmed, the 5 mm trochars were removed under direct laparoscopic visualization. The supraumbilical trocar was removed, and pneumoperitoneum was relieved. The supraumbilical fascia was closed using 0 Vicryl suture in [id number] fashion. The overlying skin was closed using 4-0 Vicryl Rapide suture in subcuticular fashion. Dressings were placed, and the procedure was concluded. All sponge, instrument, and needle counts were correct x2. Condition: Stable.
[2018-04-14] MEDS ORDERED: HYDROCODONE/ACETAMINOPHEN 10-325 MG TABLET PO PRN (11:19)
[2018-04-14] MEDS: FLUMAZENIL INJ 0.5 MG/5 ML VIAL ONE ×2 (12:10→12:15)
--- NOTE | 2018-04-14 13:39 | EKG REPORT ---
SEVERITY:- BORDERLINE ECG - SINUS RHYTHM BORDERLINE T ABNORMALITIES, INFERIOR LEADS : Confirmed by: Nir Colon MD 14-Apr-2018 13:38:20
[2018-04-14] MEDS ORDERED: SUCCINYLCHOLINE CHLORIDE INJ 200 MG/10 ML VIAL ONE (15:00)
[2018-04-14] MEDS ORDERED: ROCURONIUM BROMIDE INJ 50 MG/5 ML VIAL IV ONE (15:00)
[2018-04-14 15:36] VITALS: BP 92/60
== END 2018-04-14 15:15 | disposition home or self-care (01) ==
LOC: OROUT 06:58
PROVIDERS: ATTEND Surgery
PROC: 0FT44ZZ Resection of Gallbladder, Percutaneous Endoscopic Approach (ICD-10-PCS; principal; 2018-04-14 09:00)
DX: K80.20 Calculus of gallbladder without cholecystitis without obstruction (principal); Z72.0 Tobacco use
CPT/HCPCS: 93005 ×2; 36415 ×2; 84132; 81025; 80053; 88304 ×2; 93010 ×2; 47562; J3490 ×3; J2250; J1100; J2310; J1170; J0330; J2405; J2704; J0690; J0131; 790; J3010

== ENCOUNTER → 2018-12-12 | Outpatient (CLI) | payer BC, MEDICAID | LOC: WI 10:39 | PROVIDERS: ATTEND Family Medicine | DX: Z12.31 Encounter for screening mammogram for malignant neoplasm of breast (principal) ==

== ENCOUNTER → 2018-12-16 | Outpatient (CLI) | payer BC ==
--- NOTE | 2018-12-16 15:47 | WOMENS IMAGING REPORT ---
EXAM DESCRIPTION: BILAT DIAGNOSTIC MAMMO W/CAD; U/S BREAST UNILAT LIMITED COMPLETED DATE/TIME: 12/16/2018 8:23 am; 12/16/2018 9:02 am REASON FOR STUDY: N63.20 UNSPECIFIED LUMP IN THE LEFT BREAST, UNSPECIFIED QUADRANT; N63.[address] N63.20 UNSPECIFIED LUMP IN THE LEFT BREAST, UNSPECIFIED QUAD COMPARISON: Prior mammograms 10/25/2012, 04/21/2016 EXAM PARAMETERS: Standard craniocaudal and mediolateral oblique views of each breast recorded using digital acquisition. Additional left breast 90 mediolateral view, additional cone compression left breast in the CC and M LO orientations. Left breast ultrasound was also performed. Read with the assistance of CAD: .[facility] - [employer] Benefit Director Version 9.2 LIMITATIONS: None. FINDINGS: RIGHT BREAST MASSES: No suspicious masses. CALCIFICATIONS: No new or suspicious calcifications. ARCHITECTURAL DISTORTION: None. DEVELOPING DENSITY: None. ASYMMETRY: None noted. OTHER: No other significant findings. LEFT BREAST MASSES: No suspicious masses. CALCIFICATIONS: No new or suspicious calcifications. ARCHITECTURAL DISTORTION: None. DEVELOPING DENSITY: None. ASYMMETRY: None noted. OTHER: No other significant finding. Left breast ultrasound: 3.3 mm cyst left breast at the 9 o clock position. This correlates with the area of tenderness. IMPRESSION: No mammographic evidence for malignancy right breast. Benign 3 mm cyst left breast correlates with clinical palpable abnormality and breast pain. BREAST DENSITY: a. The breasts are almost entirely fatty. BIRAD: ASSESSMENT: 2 Benign findings. RECOMMENDATION: RECOMMENDED FOLLOW UP: Please continue yearly bilateral screening in December 2019 SPECIFIC INTERVENTION/IMAGING/CONSULTATION RECOMMENDED:No additional intervention/ imaging/consultati on needed at this time. COMMUNICATION:The negative/benign results were communicated to the patient. COMMENT: The patient has been notified of the results by letter per MQSA requirements. Additional no tification policies are in place for contacting patient with suspicious or incomplete findings. Quality ID #225: The [employer] recommends an annual screening mammogram for women aged 40 years or over. This facility utilizes a reminder system to ensure that all patients receive reminder letters, and/or direct phone calls for appointments. This includes reminders for routine scr eening mammograms, diagnostic mammograms, or other Breast Imaging Interventions when appropriate. Th is patient will be placed in the appropriate reminder system. TECHNICAL DOCUMENTATION: FINDING NUMBER: (1) ASSESSMENT: (1) JOB ID: [id number] [employer]- All Rights Reserved Reading location - IP/workstation name: [email or web address]
--- NOTE | 2018-12-16 15:47 | WOMENS IMAGING REPORT ---
EXAM DESCRIPTION: BILAT DIAGNOSTIC MAMMO W/CAD; U/S BREAST UNILAT LIMITED COMPLETED DATE/TIME: 12/16/2018 8:23 am; 12/16/2018 9:02 am REASON FOR STUDY: N63.20 UNSPECIFIED LUMP IN THE LEFT BREAST, UNSPECIFIED QUADRANT; N63.[address] N63.20 UNSPECIFIED LUMP IN THE LEFT BREAST, UNSPECIFIED QUAD COMPARISON: Prior mammograms 10/25/2012, 04/21/2016 EXAM PARAMETERS: Standard craniocaudal and mediolateral oblique views of each breast recorded using digital acquisition. Additional left breast 90 mediolateral view, additional cone compression left breast in the CC and M LO orientations. Left breast ultrasound was also performed. Read with the assistance of CAD: .[facility] - [employer] Operator Version 9.2 LIMITATIONS: None. FINDINGS: RIGHT BREAST MASSES: No suspicious masses. CALCIFICATIONS: No new or suspicious calcifications. ARCHITECTURAL DISTORTION: None. DEVELOPING DENSITY: None. ASYMMETRY: None noted. OTHER: No other significant findings. LEFT BREAST MASSES: No suspicious masses. CALCIFICATIONS: No new or suspicious calcifications. ARCHITECTURAL DISTORTION: None. DEVELOPING DENSITY: None. ASYMMETRY: None noted. OTHER: No other significant finding. Left breast ultrasound: 3.3 mm cyst left breast at the 9 o clock position. This correlates with the area of tenderness. IMPRESSION: No mammographic evidence for malignancy right breast. Benign 3 mm cyst left breast correlates with clinical palpable abnormality and breast pain. BREAST DENSITY: a. The breasts are almost entirely fatty. BIRAD: ASSESSMENT: 2 Benign findings. RECOMMENDATION: RECOMMENDED FOLLOW UP: Please continue yearly bilateral screening in December 2019 SPECIFIC INTERVENTION/IMAGING/CONSULTATION RECOMMENDED:No additional intervention/ imaging/consultati on needed at this time. COMMUNICATION:The negative/benign results were communicated to the patient. COMMENT: The patient has been notified of the results by letter per MQSA requirements. Additional no tification policies are in place for contacting patient with suspicious or incomplete findings. Quality ID #225: The [employer] recommends an annual screening mammogram for women aged 40 years or over. This facility utilizes a reminder system to ensure that all patients receive reminder letters, and/or direct phone calls for appointments. This includes reminders for routine scr eening mammograms, diagnostic mammograms, or other Breast Imaging Interventions when appropriate. Th is patient will be placed in the appropriate reminder system. TECHNICAL DOCUMENTATION: FINDING NUMBER: (1) ASSESSMENT: (1) JOB ID: [id number] [employer]- All Rights Reserved Reading location - IP/workstation name: [email or web address]
== END ==
LOC: WI 07:50
PROVIDERS: ATTEND Family Medicine
DX: N63.22 Unspecified lump in the left breast, upper inner quadrant (principal)
CPT/HCPCS: 76642; 77066

== ENCOUNTER → 2020-05-02 | Outpatient (CLI) | payer BC ==
--- NOTE | 2020-05-02 15:28 | NEURO WORKBENCH EEG REPORT ---
EEG Report Patient: Sissy Larios ID: [id number] Referring Doctor: Harrison Rojas MD DOS: 05/02/2020 Medications: metformin, tizanidine, gabapentin, metoprolol, midodrine, rosuvastatin, trazodone, oxycod/acettam, levothyroxine, sprinolactone, furosemide, cyclobenzaprine, aspirin, vitamin D History This is a 50 year old right handed female with a history of diabetes, heart murmur, syncope, arthritis, chronic back pain, fibromyalgia, migraines, cardiac specialist, sleep apnea, opiate usage. This EEG was requested for amnesia. EEG Interpretation This EEG was recorded in the awake and drowsy states. The awake EEG is characterized by a well-organized background with a well-developed and reactive posterior dominant rhythm of 10 Hz. The remainder of the background was characterized by a combination of alpha with prominent beta frequencies. Drowsiness was characterized by slowing of the background rhythms. Photic stimulation resulted in no significant changes. There were no epileptiform abnormalities. The EKG showed a regular rhythm. EEG Classification * Excessive beta EEG Impression This EEG is essentially normal but with excessive beta activity which may be seen with certain medications (e.g. benzodiazepines). INTERPRETING NEUROLOGIST: Judy Fernandez MD, CPC Board Certified in Neurology, with special qualification in Child Neurology, and in Clinical Neurophysiology [facility]
== END ==
LOC: NEURO 12:46
PROVIDERS: ATTEND Pediatrics
DX: R41.3 Other amnesia (principal); Z79.891 Long term (current) use of opiate analgesic
CPT/HCPCS: 95819